=== PATIENT | female | born 1980 | race Caucasian/White ===

== ENCOUNTER 2023-08-09 12:46 | Outpatient (CLI) | payer OTHER, SELFPAY ==
--- NOTE | 2023-08-09 13:00 | CRLHL7_ITS ---
For Patients: As a result of the Century Cures Act, medical imaging exams and procedure reports are released immediately into your electronic medical record. You may view this report before your referring provider. If you have questions, please contact your health care provider. BILATERAL SCREENING MAMMOGRAM WITH COMPUTER-AIDED DETECTION AND TOMOSYNTHESIS TECHNIQUE: CC and MLO views were obtained. These mammographic images have been obtained using full-field digital technique. These mammographic images were interpreted with the benefit of computer-aided detection. Breast Tomosynthesis was used in this interpretation. COMPARISON FILM: 01/18/20, 09/04/14. FINDINGS: The breasts are heterogeneously dense, which may obscure small masses IMPRESSION: There is no radiographic evidence for malignancy. ASSESSMENT: BI-RADS Category 1: Negative RECOMMENDATION: Routine screening mammogram in 1 year. A lay language report of this examination will be provided to the patient. Joao Diane M.D. Diagnostic Radiologist [email or web address] JUAN/Dictated by: Joao Diane MD @ 08/10/2023 8:16:00 AM (Electronically Signed)
== END 2023-08-09 12:47 | disposition home or self-care (01) ==
PROVIDERS: PCP Internal Medicine; Visit Provider Internal Medicine
DX: Z12.31 Encounter for screening mammogram for malignant neoplasm of breast (principal); R92.2 Inconclusive mammogram
CPT/HCPCS: 77063; 77067

== ENCOUNTER 2025-03-16 08:17 | Outpatient (CLI) | payer BC, SELFPAY ==
--- NOTE | 2025-03-16 08:15 | CRLHL7_ITS ---
For Patients: As a result of the 21st Century Cures Act, medical imaging exams and procedure reports are released immediately into your electronic medical record. You may view this report before your referring provider. If you have questions, please contact your health care provider. EXAM: MRI OF THE RIGHT KNEE, WITHOUT CONTRAST CLINICAL INDICATION: Twisting injury. Suspected meniscal tear. COMPARISON PLAIN FILMS: None available at time of interpretation. COMPARISON CROSS-SECTIONAL IMAGING STUDIES: None available at time of interpretation. TECHNICAL: Axial, sagittal and coronal T1, PD, PD FS and T2 FS images. Knee coil. FINDINGS: MEDIAL COMPARTMENT: Medial Meniscus: Normal size and morphology without tear. Articular Cartilage: Articular surfaces appear smooth without focal articular cartilage defect or subchondral marrow changes. - LATERAL COMPARTMENT: Lateral Meniscus: Irregular tear in the free edge and femoral articular surface in the anterior body and anterior horn junction of the lateral meniscus. Additional fraying and degeneration of the anterior horn. Articular Cartilage: Focal full-thickness chondral defect in the femoral condyle posteriorly measures 1.2 x 0.4 cm in size (grade 4). Additional high-grade chondral thinning in the adjacent posterior tibia (grade 3). Mild thinning centrally in the lateral compartment (grade 2). - PATELLOFEMORAL COMPARTMENT: Articular Cartilage: 0.2 cm low-grade partial-thickness fissure in the lateral patellar facet (grade 2). - CRUCIATE LIGAMENTS: Anterior Cruciate Ligament: Normal. Posterior Cruciate Ligament: Normal. - MEDIAL COLLATERAL LIGAMENT AND POSTEROMEDIAL CORNER COMPLEX: Medial Collateral Ligament: Normal. Medial Head of the Gastrocnemius and Semimembranosus Tendons: Normal. - LATERAL COLLATERAL LIGAMENT COMPLEX AND POSTEROLATERAL CORNER COMPLEX: Fibular Collateral Ligament: Normal. Distal Biceps Femoris Tendon Complex: Normal. Iliotibial Band: Normal. Popliteus Tendon: Normal. Posterolateral Corner Capsule: Normal. - EXTENSOR MECHANISM: Distal Quadriceps Tendon: Normal. Patellar Tendon: Normal. Medial Patellar Retinaculum and Medial Patellofemoral Ligament: Normal. Lateral Patellar Retinaculum: Normal. Normal patellar alignment. No patella sierra. Normal trochlear depth. Normal lateral trochlear inclination. - JOINT SPACE: Effusion: Small joint effusion and popliteal cyst. Joint Bodies: None seen. - OSSEOUS STRUCTURES: No fracture, marrow edema or marrow replacement process. - PERIARTICULAR SOFT TISSUES: Periarticular Cysts or Ganglia: None. Bursae: No prepatellar, superficial infrapatellar, deep infrapatellar, pes anserinus or semimembranosus/MCL bursitis. Musculature: No muscle atrophy or muscle edema. Subcutaneous and Soft Tissues: No subcutaneous or soft tissue mass, edema or fluid collection. Neurovascular Structures: Normal. IMPRESSION: 1. Tear of the anterior body and anterior horn junction of the lateral meniscus with additional fraying and degeneration of the anterior horn. 2. Focal areas of high-grade chondromalacia in the lateral compartment posteriorly with mild chondromalacia centrally. 3. Small low-grade fissure in the lateral patellar facet. 4. Small knee joint effusion and popliteal cyst. Dictated by Ruddy Alford MD @ 03/19/2025 8:59:51 AM (Electronically Signed)
== END 2025-03-16 08:18 | disposition home or self-care (01) ==
LOC: MRI 08:18
PROVIDERS: PCP Internal Medicine; Visit Provider Internal Medicine
DX: M25.561 Pain in right knee (principal); S83.281A Other tear of lateral meniscus, current injury, right knee, initial encounter; M94.261 Chondromalacia, right knee; M25.461 Effusion, right knee; M71.21 Synovial cyst of popliteal space [Baker], right knee; S89.90XA Unspecified injury of unspecified lower leg, initial encounter
CPT/HCPCS: 73721

== ENCOUNTER 2025-03-20 07:38 | Outpatient (CLI) | payer BC, SELFPAY | END 2025-03-20 07:39 | disposition home or self-care (01) | LOC: NFLDREF 23:39 | PROVIDERS: PCP Internal Medicine; Referring Provider Registered Nurse; Visit Provider Internal Medicine | DX: Z00.00 Encounter for general adult medical examination without abnormal findings (principal); Z13.228 Encounter for screening for other metabolic disorders; Z13.6 Encounter for screening for cardiovascular disorders | CPT/HCPCS: 80053; 80061; 83690 ==

== ENCOUNTER 2025-04-09 06:53 | Day surgery (SDC) | payer BC, SELFPAY ==
[2025-04-09] VITALS (11 sets, daily range): BP systolic 96–126; BP diastolic 59–90; PULSE 44–64; RESP 12–16; TEMP 36.4–36.7; O2SAT 96–100; BMI 24.6
--- NOTE | 2025-04-09 07:23 | W.PM.H&PU ---
History & Physical Update History & Physical Update H&P Reviewed and patient assessed: No changes noted
[2025-04-09] MEDS: SODIUM CHLORIDE 0.9 % (FLUSH) 10 ML SYRINGE IVF (07:25)
[2025-04-09] MEDS: LACTATED RINGERS 1000 ML 1,000 ML 100 ML IV (07:40)
--- NOTE | 2025-04-09 08:15 | P.ANES_ITS ---
Anesthesia Charges Start Date/Time Anesthesia Start Date: 04/09/25 Anesthesia Start Time: 08:21 Stop Date/Time Anesthesia Stop Date: 04/09/25 Anesthesia Stop Time: 09:29 Coding CPT Codes CPT Codes: ANESTH KNEE JOINT SURGERY - 51686 ([id number]) P3 - PATIENT W/SEVERE SYS DISEASE, QK - BULLDOZER ENGINEER 2-4 CNCRNT ANES PROC, QX - MEDICAL TRANSCRIPTION SUPERVISOR SVC W/ MD MED DIRECTION
--- NOTE | 2025-04-09 08:15 | W.ANESCHARGE ---
Anesthesia Charges Start Date/Time Anesthesia Start Date: 04/09/25 Anesthesia Start Time: 08:21 Stop Date/Time Anesthesia Stop Date: 04/09/25 Anesthesia Stop Time: 09:29 Coding CPT Codes CPT Codes: ANESTH KNEE JOINT SURGERY - 17082 ([id number]) P3 - PATIENT W/SEVERE SYS DISEASE, QK - COVERAGE ANALYST 2-4 CNCRNT ANES PROC, QX - ENGRAVER AUTOMATIC SVC W/ MD MED DIRECTION
[2025-04-09] MEDS: CEFAZOLIN 1 GM inj IVP (08:33)
--- NOTE | 2025-04-09 09:17 | P.ORPRC_ITS ---
Procedure Note Date of procedure: 04/09/25 Procedure: PREOPERATIVE DIAGNOSIS: 1. Right knee lateral meniscus tear POSTOPERATIVE DIAGNOSIS: 1. Right knee lateral meniscus tear PROCEDURE: 1. Right knee arthroscopic partial lateral meniscectomy SURGEON: Hadley Monzon M.D. WRAPPING MACHINE TENDER: Uriel Michelle PA-C. Of note, an insurance underwriting assistant was critical for this case to aid in patient positioning, knee manipulation, instrument exchange, and closure. ANESTHESIA: Spinal EBL: 2ml TOURNIQUET: 30 min at 300 torr COMPLICATIONS: None evident INDICATIONS: The patient is a pleasant 44-year-old female who has experienced right knee pain particularly with any twisting or turning. Physical exam was concerning for medial meniscus tear, this was confirmed on MRI. Additionally, attempted nonoperative management has been tried, and failed. Thus, surgery was recommended. FINDINGS: Full-thickness lateral meniscus tear primarily involving the anterior horn to midbody. Complex in pattern. Approach the anterior root. More longitudinal/horizontal type tearing rather than radial type tear. Grade 2-3 chondromalacia weight-bearing portion lateral femoral condyle broadly over roughly 15 x 25 mm region centrally M-L and A-P, respectively. Grade 2-3 chondromalacia weight-bearing portion medial femoral condyle over a 10 x 15 mm region M-L and A-P, respectively. ACL and PCL intact. ACL had some mild striations as it the spread into the anterior horn lateral meniscus. Moderate effusion upon entering the joint. DESCRIPTION OF PROCEDURE: After a thorough discussion of risks, benefits, and alternatives, the patient was brought to the operating room and placed upon the operating table. Induction of anesthesia was undertaken as previously noted. 1g iv Ancef was administered within 1 hr of incision preoperatively. Appropriate time-out was performed identifying proper patient, site, and procedure. The right lower extremity was prepped and draped in the appropriate sterile fashion using ChloraPrep. The limb was exsanguinated and tourniquet inflated. Anterolateral and anteromedial portals were established with an 11 blade, and a diagnostic arthroscopy was performed. This identified the findings as noted above. Following the diagnostic arthroscopy, a partial lateral menisectomy was performed with the combination of basket forceps, apollo cautery, and a motorized shaver. Following this, the meniscus was re-probed and found to be stable. Approximately 20-25% of the overall meniscus required resection. Minimal chondroplasty performed of loose chondral flaps lateral femoral condyle. At this stage, the shaver was reinserted into the suprapatellar pouch and all remaining meniscal debris was evacuated. Instruments were removed, excess fluid was drained, and closure performed with 4-0 Monocryl with Steri-Strips. Dressings were applied, the tourniquet deflated, and the patient was awoken from anesthesia and transferred to the PACU in stable condition. PLAN: 1. Weightbear as tolerated operative extremity. Crutch / walker ambulation assistance PRN. 2. Ice, acetominophen and/or ibuprofen, and Oxycodone for pain as needed. 3. Knee range of motion and quad sets/straight leg raise regularly 4. Follow up with PA visit in 1-2 weeks for a wound check and possibly to initiate physical therapy.
[2025-04-09] MEDS: ROPIVACAINE 0.5% 30 ML 150 MG INJECTION (09:19)
--- NOTE | 2025-04-09 10:05 | P.ANES_ITS ---
Anesthesia Charges Start Date/Time Anesthesia Start Date: 04/09/25 Anesthesia Start Time: 08:21 Stop Date/Time Anesthesia Stop Date: 04/09/25 Anesthesia Stop Time: 09:29 Coding CPT Codes CPT Codes: ANESTH KNEE JOINT SURGERY - 00546 ([id number]) QK - FARM ASSISTANT 2-4 CNCRNT ANES PROC, QX - REFINING EQUIPMENT OPERATOR SVC W/ MD MED DIRECTION, P3 - PATIENT W/SEVERE SYS DISEASE
--- NOTE | 2025-04-09 10:05 | W.ANESCHARGE ---
Anesthesia Charges Start Date/Time Anesthesia Start Date: 04/09/25 Anesthesia Start Time: 08:21 Stop Date/Time Anesthesia Stop Date: 04/09/25 Anesthesia Stop Time: 09:29 Coding CPT Codes CPT Codes: ANESTH KNEE JOINT SURGERY - 72301 ([id number]) QK - SHAREPOINT DESIGNER DEVELOPER 2-4 CNCRNT ANES PROC, QX - ALIGNER BARREL AND RECEIVER SVC W/ MD MED DIRECTION, P3 - PATIENT W/SEVERE SYS DISEASE
== END 2025-04-09 11:03 | disposition home or self-care (01) ==
LOC: OR 06:57
PROVIDERS: PCP Internal Medicine; Visit Provider Orthopaedic Surgery Sports Medicine
PROC: (CPT 29870; principal; 2025-04-09 08:15)
DX: S83.281A Other tear of lateral meniscus, current injury, right knee, initial encounter (principal)
CPT/HCPCS: 29881; 01400; J0690; J1100; J2250; J2405; J2704; J2795; J3010; J7120

== ENCOUNTER 2025-04-30 09:45 | Outpatient (RCR) | payer BC, SELFPAY | END 2025-06-21 10:39 | disposition home or self-care (01) | PROVIDERS: PCP Internal Medicine; Visit Provider Orthopaedic Surgery Sports Medicine | DX: Z48.89 Encounter for other specified surgical aftercare (principal); M25.561 Pain in right knee; Z51.89 Encounter for other specified aftercare | CPT/HCPCS: 97110; 97162 ==

== ENCOUNTER 2025-07-20 14:25 | Emergency (ER) | payer BC, SELFPAY ==
[2025-07-20 14:32] VITALS: BP 118/84; PULSE 83; RESP 18; TEMP 36.6; O2SAT 98; BMI 22.6
--- NOTE | 2025-07-20 14:43 | CRLHL7_ITS ---
For Patients: As a result of the Century Cures Act, medical imaging exams and procedure reports are released immediately into your electronic medical record. You may view this report before your referring provider. If you have questions, please contact your health care provider. INDICATION: Leg pain and swelling TECHNIQUE: Ultrasound venous duplex lower right extremity. Compression venous exam was performed using banks-scale, color Doppler, and spectral Doppler imaging. COMPARISON: None. FINDINGS: Sonographic imaging demonstrates the right common femoral, deep femoral, superficial femoral, popliteal, posterior tibial and greater saphenous and the contralateral left common femoral veins to be fully compressible with normal color Doppler blood flow. Hypoechoic collection right popliteal fossa measuring 5.8 x 1.0 x 1.8 centimeters. IMPRESSION: 1. No evidence of deep venous thrombosis right lower extremity. 2. Right Rowley`s cyst. Dictated by Victor M Ross MD @ 07/20/2025 3:31:30 PM (Electronically Signed)
--- NOTE | 2025-07-20 14:51 | ED_ITS ---
HPI - General Adult General Chief complaint: Extremity Pain/Injury, Lower Stated complaint: potential blood clot in right leg Time Seen by Provider: 07/20/25 14:39 History of Present Illness HPI narrative: Patient is a 45-year-old woman who recently returned from a trip to [place]. She was dropping her daughter off at college. Or last several days she has had progressive swelling and induration from her posterior knee down into her right ankle. She has had no cough no sputum production no fevers no chills no night sweats. Patient has otherwise been in her usual state of health. She has had no bruising or bleeding. Patient has a history of cerebrovascular accident. Related Data Previous Rx's ?Medication ?Instructions ?Recorded duloxetine 30 mg capsule,delayed 30 mg PO QDAY #90 cap s 05/29/25 release Allergies Allergy/AdvReac Type Severity Reaction Status Date / Time No Known Drug Allergies Allergy Verified 07/20/25 14:37 Review of Systems Status of ROS: Reports: 10 or more systems reviewed and unremarkable except as noted in History and below PFSH PFSH Medical History Anemia ?D64.9 - Anemia, unspecified (ICD-10) Acute meniscal tear of knee ?S83.209A - Unspecified tear of unspecified meniscus, current injury, unspecified knee, initial encounter (ICD-10) Knee injury ?S89.90XA - Unspecified injury of unspecified lower leg, initial encounter (ICD-10) Screening due ?Z13.9 - Encounter for screening, unspecified (ICD-10) Anxiety ?F41.9 - Anxiety disorder, unspecified (ICD-10) Tobacco use ?Z72.0 - Tobacco use (ICD-10) Surgical History S/P arthroscopic partial lateral meniscectomy of right knee (04/09/25) ?Z98.890 - Other specified postprocedural states (ICD-10) ?Z87.828 - Personal history of other (healed) physical injury and trauma (ICD-10) Status post laparoscopic hysterectomy ?Z90.710 - Acquired absence of both cervix and uterus (ICD-10) History of repair of dehiscence of vaginal cuff ?Z98.890 - Other specified postprocedural states (ICD-10) History of varicose vein stripping ?Z98.890 - Other specified postprocedural states (ICD-10) Family History Grandfather Heart disease Grandmother Breast cancer Bowel cancer Social History Narrative: Master's degree. Works in administration in the [employer] What is your current living situation?: I presently have a place to live In the past 12 months, utilities in danger of being shut off: no In past 12 months, lack of transportation kept you from medical appts, meetings, work, or getting things needed for daily living: no In the past 12 mos, have been you worried that your food would run out before you had money to buy more?: never true In the past 12 mos, the food you bought just didn't last and you didn't have money to buy more?: declined to answer Smoking Status: Former smoker How often do you have a drink containing alcohol: never How often do you have six or more drinks on one occasion: Never AUDIT-C Alcohol total score: 0 Non-prescribed substance use: denies use Caffeine: Yes (coffee daily) How often does anyone, including family, friends and others, physically hurt you : never How often does anyone, including family, friends and others, insult or talk down to you: never How often does anyone, including family, friends and others, threaten you with harm: never How often does anyone, including family, friends and others, scream or curse at you: never Are you using contraception or practicing any form of control: No Exam Narrative: Exam Narrative: EXAM GENERAL: Patient appears comfortable and well. EYES: No scleral icterus. ENT: Tympanic membranes and oropharynx normal. THYROID: no thyroid nodules or thyromegaly. LYMPH: No supraclavicular or cervical lymphadenopathy. SKIN: Visible skin seen during exam normal or with benign process only. EXT: No dependent lower extremity pedal edema. Minimal fullness of the right calf with extension into the popliteal fossa on the right. HEART: Regular rate and rhythm with no murmurs, rubs, or gallops. LUNGS: Clear to auscultation bilaterally with no crackles or wheezes. ABD: Soft, non tender, non distended. PSYCH: Good eye contact, speech is not pressured. Const: Vital Signs, click to edit/add: Vital Signs - 24 hr 07/20/25 14:32 Temperature 97.8 F Pulse Rate [Right Pulse Oximeter] 83 Respiratory Rate 18 Blood Pressure [Ri ght Upper Arm] 118/84 Pulse Oximetry 98 Oxygen Delivery Me thod Room Air Course Course ED Course: Patient seen and examined. Duplex of lower extremity pending. Vital Signs Vital signs: Initial Vital Signs Temperature 97.8 F 07/20/25 14:32 Temperature Source Temporal Artery Scan 07/20/25 14:32 Pulse Rate 83 07/20/25 14:32 Pulse Rhythm Regular 07/20/25 14:32 Pulse Strength 3+ Normal 07/20/25 14:32 Respiratory Rate 18 07/20/25 14:32 Blood Pressure 118/84 07/20/25 14:32 Blood Pressure Mean 95 07/20/25 14:32 Blood Pressure Position Sitting 07/20/25 14:32 Pulse Oximetry 98 07/20/25 14:32 Oxygen Delivery Method Room Air 07/20/25 14:32 Vital Signs Temperature 97.8 F 07/20/25 14:32 Pulse Rate 83 07/20/25 14:32 Respiratory Rate 18 07/20/25 14:32 Blood Pressure 118/84 07/20/25 14:32 Pulse Oximetry 98 07/20/25 14:32 Oxygen Delivery Method Room Air 07/20/25 14:32 Temperature 97.8 F 07/20/25 14:32 Pulse Rate 83 07/20/25 14:32 Respiratory Rate 18 07/20/25 14:32 Blood Pressure 118/84 07/20/25 14:32 Pulse Oximetry 98 07/20/25 14:32 Oxygen Delivery Method Room Air 07/20/25 14:32 Medical Decision Making MDM Narrative Medical decision making narrative: Patient presents with swelling in the right leg. There was some Concern of a DVT however the ultrasound of her lower extremity is unremarkable with the exception some soft tissue edema. Patient is my primary care patient and she does take baby aspirin daily which I do think is reasonable. She has compression hose will wear them for the next several days and then follow-up with me by phone or in person. No other concerns noted. Discharge Plan Discharge Clinical Impression: Edema, peripheral Patient Disposition: Home, Self-Care Condition: Stable Instructions: Edema (ED) Additional Instructions: Patient will wear her compression stockings as directed. Continue aspirin 81 mg daily Leg elevation when at rest Follow-up as needed. Activity Level: No Restrictions Discharge Diet: Regular Prescriptions: No Action duloxetine 30 mg capsule,delayed release(DR/EC) 30 mg PO QDAY Qty: 90 3RF Follow Up/Referrals: Olu Verdin MD [Primary Care Provider, Internal Medicine] Stand Alone Forms: [employer] Info Instructions
== END 2025-07-20 15:38 | disposition home or self-care (01) ==
PROVIDERS: Emergency Provider Internal Medicine; PCP Internal Medicine
DX: R60.0 Localized edema (principal)
CPT/HCPCS: 93971; 99283

== ENCOUNTER 2025-08-16 08:35 | Outpatient (CLI) | payer BC, SELFPAY | END 2025-08-16 08:36 | disposition home or self-care (01) | PROVIDERS: PCP Internal Medicine; Visit Provider Internal Medicine | DX: R53.83 Other fatigue (principal) | CPT/HCPCS: 80053; 84443; 86038; 86200; 86431 ==